=== PATIENT | male | born 2000 | race Caucasian/White ===

== ENCOUNTER 2025-02-25 01:31 | Emergency (ER) | payer OTHER, SELFPAY ==
--- NOTE | ~2025-02-25 | XR_ITS ---
Portable chest x-ray Comparison: 10/18/2010 Clinical History: Shortness of breath Findings: Lungs are clear, without focal consolidation or pleural effusion. Cardiomediastinal silho uette is stable. Bones and soft tissues are unremarkable. Impression: Clear lungs. Reviewed, dictated and finalized at location . Impression: Clear lungs.
--- NOTE | 2025-02-25 01:34 | ECG_ITS ---
Test Date: 2025-02-25 01:42:29 Measurements Intervals [place] Rate: 92 P: 23 LA: 197 QRS: -18 QRSD: 126 T: 55 QT: 359 QTc: 446 Interpretive Statements SINUS RHYTHM WITH SINUS ARRHYTHMIA INTRAVENTRICULAR CONDUCTION DELAY DELAYED PRECORDIAL R/S TRANSITION VOLTAGE CRITERIA FOR LVH MINIMAL Q WAVES- HIGH LATERAL LEADS BORDERLINE ECG No previous ECG available for comparison Electronically Signed On 02-25-2025 06:16:12 CDT by Rambo Go D.O.
--- OUTSIDE RECORDS SUMMARY | 2025-02-25 01:34 | XMS_ITS | CONTINUITY OF CARE DOCUMENT ---
Author Name jah tyson Address Unknown Organization [facility] Address [address] [place] [address] Phone [phone] Care Team Providers Care Statistics Manager Name Role Phone Moses RANDLE, Kevan Unavailable DANY JUAREZ MD Unavailable DANY JUAREZ MD Unavailable PROBLEMS Condition Status Date Provider Notes Chest pain active Kevan Lopes MD Palpitations active Kevan Lopes MD Anxiety disorder active Kevan Lopse MD Bipolar 1 disorder active Kevan Lopes MD Hypertension active Kevan Lopes MD Tobacco abuse active Kevan Lopes MD Snoring active Kevan Lopes MD Anxiety active Kevan Lopes MD (History of) Depression active Kevan Lopes MD Sleep apnea active Kevan Lopes MD Cardiology examination active Kevan Lopes MD ENCOUNTERS Date Type Provider Location Encounter Diag nosis - In-person encounter Office Visit Kevan Lopes MD [facility] Cardiology examination - In-person encounter Office Visit Kevan Lopes MD [facility] - In-person encounter Office Visit Kevan Lopes MD [facility] AnxietyDepressionSleep apnea - In-person encounter Office Visit Kevan Lopes MD [facility] - In-person encounter Office Visit Kevan Lopes MD [facility] Chest painPalpitationsAnxiety disorderBipolar 1 disorderHypertensionTobacco abuseSnoring VITAL SIGNS Date Observation Value Provider Body Mass Index (Ratio) 45.19 kg/m2 Viktor Lopes MD blood pressure, diastolic 97 mm[Hg] melissa Lee blood pressure, systolic 148 mm[Hg] Lashae quispe Lee oxygen saturation, oximetry 97 % [facility]ilia [facility] rate 115 [facility] 12 [facility] weight E&M 315 [lb_av] [facility] height [facility]&M 70 [in_i] [facility] blood [facility], cuff size regular melissa Lee Body Mass Index (Ratio) 44.76 kg/m2 Viktor Lopes MD blood pressure, cuff size regular sixto aRmirez blood pressure, diastolic 88 mm[Hg] sixto Ramirez blood pressure, systolic 142 mm[Hg] She maddie Ashley oxygen saturation, oximetry 98 % Morena Ashley respiratory rate E&M 18 /min Morena Ashley pulse rate 94 /min Morena Ashley weight E&M 312 [lb_av] Morena Ramirez height E&M 70 [in_i] Morena Ramirez Body Mass Index (Ratio) 41.61 kg/m2 Viktor Lopes MD blood pressure, diastolic 77 mm[Hg] Mi ting Prather blood pressure, systolic 128 mm[Hg] [facility] yordy Prather oxygen saturation, oximetry 97 % Cyndie Hernandezand pulse rate 81 /min Cyndie Jolanta sesay weight E&M 290 [lb_av] Cyndie sesay blood pressure, cuff size large Candice maguire Crescencio respiratory rate E&M 16 /min Michelle lundy Crescencio height E&M 70 [in_i] Cyndie Jolanta sesay Body Mass Index (Ratio) 42.07 kg/m2 Viktor Lopes MD blood pressure, cuff size large Iván anthony Durga blood pressure, diastolic 76 mm[Hg] Ta gabrielle Van blood pressure, systolic 128 mm[Hg] Cobos gato Durga oxygen saturation, oximetry 100 % [facility] respiratory rate E&M 14 /min [facility] pulse rate 93 /min Eli Durga weight E&M 293.2 [lb_av] Eli Durga height E&M 70 [in_i] Eli Durga weight E&M 301 [lb_av] Tim dougherty Body Mass Index (Ratio) 43.18 kg/m2 Viktor Lopes MD blood pressure, diastolic 96 mm[Hg] Shikha duarteLogmeghann blood pressure, systolic 155 mm[Hg] Kaley Blanco blood pressure, diastolic 96 mm[Hg] Paty Bryant blood pressure, systolic 155 mm[Hg] Jazzy Bryant oxygen saturation, oximetry 98 % Lashawn Bryant respiratory rate E&M 18 /min Scottie Bryant pulse rate 98 /min Lashawn melendez height E&M 70 [in_i] Lashawn melendez weight E&M 301 [lb_av] Lashawn melendez blood pressure, cuff size regular La Shani Bryant ALLERGIES No Known Drug Allergies HISTORY OF MEDICATION USE Medication Status Instructions Dates Provider Indications Com ments metoprolol tartrate 50 mg tablet active 1 tablet twice a day 8 Kevan Lopes MD metoprolol tartrate 25 mg tablet completed TAKE 1 TABLET BY MOUTH TWICE A DAY 1 - 8 Kevan Lopes MD metoprolol tartrate 25 mg tablet completed Take 1 tablet by mouth twice a day 5 - 1 Barbara Ellis hydroxyzine HCl 25 mg tablet active 1 tablet once a day Kevan Lopes MD lithium carbonate 450 mg tablet extended release active Take 2 tablet once a day Lashawn Bryant hydralazine 25 mg tablet completed Take 1 tablet by mouth three times a day - 5 Lashawn Bryant SOCIAL HISTORY Date Observation Value Provider drug use no Kevan Sesay alcohol use, average drinks per day social Kevan Lopes MD alcohol use yes Kevan Sesay passive cigarette sm dennis exposure no Kevan Lopes MD number of years as a smoker 4 a Kevan Lopes MD smoking, date started 2017 Kevan Lopes MD smoking history, tot al pack/day 1 Kevan Lopes MD cigarette use yes Kevan Lopes MD smoking status Current every day smoker R eugenia Lopes MD social history E&M Marital Statu s: Single C hildren: 0 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 Kevan Lopes MD social history reviewed E&M revi ewed - no changes required Kevan Lopes MD smoking status Current every day smoker S luis Ashley social history E&M Marital Statu s: Single C hildren: 0 O ccupation: Unemployed Smoking History: P atient currently smokes every day. Kevan Lopes MD social history reviewed E&M revi ewed - no changes required Kevan Lopes MD passive cigarette sm dennis exposure no Cyndie Prather number of years as a smoker 4 a Cyndie Prather smoking, date started 2017 Eliu South smoking history, tot al pack/day 1 Cyndie Prather cigarette use yes Cyndie Barros nd smoking status Current every day smoker M kaitlin Prather social history E&M Marital Statu s: Single C hildren: 0 O ccupation: Unemployed Smoking History: P atient currently smokes every day. Kevan Lopes MD social history reviewed E&M revi ewed - no changes required Kevan Lopes MD number of years as a smoker 4 a Eli Calixto smoking, date started 2017 Eli Van smoking history, tot al pack/day 1 Eli Van cigarette use yes Eli Van smoking status Current every day smoker T bonnie Calixto passive cigarette sm dennis exposure no Kevan Lopes MD social history E&M Marital Statu s: Single C hildren: 0 O ccupation: Unemployed Smoking History: P atient currently smokes every day. Kevan Lopes MD social history reviewed E&M revi ewed - no changes required Kevan Lopes MD drug use no Lashawn melendez alcohol use, average drinks per day social Lashawn Manny alcohol use yes Lashawn melendez number of years as a smoker 4 a Lashawn Bryant smoking history, tot al pack/day 10 Lashawn Bryant cigarette use yes Lashawn palacios smoking status Current every day smoker L Jocelin Bryant FAMILY HISTORY Family Member Condition First Degree Blood Relative No Known Fam liza History INSURANCE PROVIDERS Payer name Policy type / Coverage type [place] [employer] party ID [employer]\[facility] [employer] 11 [id number] ADVANCE DIRECTIVES Name Date DISCUSSED - NO DECISION MADE TREATMENT PLAN Date Name Performer [id number],S, Kevan beavers MD [id number],S, Kevan beavers MD [id number],S,Still has not picked up CPAP. Kevan Lopes MD [id number],S, Kevan beavers MD [id number],S, Kevan beavers MD [id number],S, Kevan beavers MD [id number],S, Kvean beavers MD [id number],N, Kevan beavers MD [id number],S, Kevan beavers MD [id number],B,Metoprolol wi ll now be prn Kevan Lopes MD [id number],C,Sleep study p ending Kevan Lopes MD [id number],B,Stress and EC HO normal Kevan Lopes MD [id number],S, Kevan beavers MD [id number],B, Kevan beavers MD [id number],W,2 week tele R eugenia Lopes MD [id number],N,Needs sleep s tudy Kevan Lopes MD [id number],N,Start metopro lol Kevan Lopes MD [id number],N,N eeds telesentry N eeds ECHO Kevan Lopes MD [id number],N,Needs stress test. Kevan Lopes MD Cardiology:Needs repeat IHS Viktor Lopes MD Cardiology:Will check 2 week tel e monitor, ECHO Kevan Lopes MD Cardiology Kevan Lopes MD Cardiology Kevan Lopes MD Cardiology:Still has not picked up CPAP. Kevan Lopes MD Cardiology Kevan Lopes MD Cardiology Kevan Lopes MD Cardiology Kevan Lopes MD Cardiology Kevan Lopes MD Cardiology Kevan Lopes MD Cardiology Kevan Lopes MD Cardiology:Metoprolol will now b e prn Kevan Lopes MD Cardiology:Sleep study pending R eugenia Lopes MD Cardiology:Stress and ECHO alessandra l Kevan Lopes MD Cardiology Kevan Lopes MD Cardiology Kevan Lopes MD Cardiology:2 week tele Kevan trimble MD Cardiology:Needs sleep study Baljeet Lopes MD Cardiology:Start metoprolol Viktor Lopes MD Cardiology:Needs tel esentry N eeds ECHO Kevan Lopes MD Cardiology:Needs stress test. Ra lakeisha Lopes MD Date Name Monitor - Telemetry (Mobile Cardiac) Complete Echo Monitor - Telemetry (Mobile Cardiac) Stress Routine Complete Echo Sleep Study Home HISTORY OF PROCEDURES Procedure Date Procedure Name Provider Procedure Notes S tatus EKG Kevan Lopes MD complete d EKG Kevan Lopes MD complete d
--- OUTSIDE RECORDS SUMMARY | 2025-02-25 01:34 | XMS_ITS | Data Portability ---
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 Plan of Treatment Reminders Order Date Submit Date Provider Last Modified By Organization Details Last Modified Time Details Appointments None recorded. Lab vitamin D, 25-hydroxy, total, serum 2023 [email or web address] [place] [address] (Lab), [address] [place], [address], 5 09:26:25 CMP, serum or plasma 2023 [email or web address] [place] [address] (Lab), [address] [place], [address], 5 09:23:29 lipid panel, serum 2023 024 [email or web address] [address] [place] [address] (Lab), [address] [place], [address], 5 09:23:38 unlisted lab - CBC study 2023 [email or web address] [address] [place] [address] (Lab), [address] [place], [address], 4 14:54:46 TSH, serum or plasma 2023 [email or web address] [place] [address] (Lab), [address] [facility], [place], [address], 5 09:23:47 vitamin B12 + folate, serum or blood 2023 024 [email or web address] 6 [facility] (Lab), [address] [place], [address], 5 09:26:[address] referral - Please call patient to schedule. 2023 [email or web address] Yaima Saucedo SUPPLY ANALYST-C, [address] [facility], [address], [place], [address], 4 17:04:05 gastroenter ologist referral - Please call patient to schedule. 2023 [email or web address] 6 Alison Mcleod MD, [address] [facility], [address], [place], [address], 5 08:15:58 Procedures None recorded. Surgeries None recorded. Imaging None recorded. Medication Orders metoprolol succinate ER 25 mg tablet,exte nded release 24 hr 2023 [facility]armacy #[id number], [address] , [place], [address], 4 14:54:29 Patient TargetsNo targets recorded. Patient InstructionsNo instructions recorded. Reason for Referral Rasper Machine Operator Referral for O bstructive sleep apnea syndrome Please call patient to schedule. Referring Physician: Mary Billings, Internal Medicine, Encounter Date: 09/16/2024 Histologist Technologist Referral for Colitis Please call patient to schedule. Referring Physician: Mary Billings, Internal Medicine, Encounter Date: 09/16/2024 Results Created Date Observation Date Name Description Value Unit Range Abnormal Flag Note LastModifiedBy Organization Detail LastModifiedTime 03/08/20 22 03/08/2022 TSH thyroid-stim ulating hormone 2.460 uIU/m L 0.465- 4.680 Not Available [facility] (Lab) [address] [place], [address], 03/08/2022 21:21:02 03/08/20 22 03/08/2022 T3 FREE free T3 4.7 pg/mL 2.77-5 .27 Not Available [facility] (Lab) [address] [place], [address], 03/08/2022 20:35:07 03/08/20 22 03/08/2022 T4 FREE free T4 1.34 NG/dL 0.78-2 .19 Not Available [facility] (Lab) [address] [place], [address], 03/08/2022 20:35:02 03/08/20 22 03/08/2022 LIPID PANEL cholesterol 203 mg/dL 140-19 9 high NIH MAYE NSUS RECOM MENDA TION FOR SERG STERO L: ADULT CHILD LOW RISK: <200 <170 BORDE RLINE : <200- 239 ----- HIGH RISK: >240 >200 Not Available [facility] (Lab) [address] [place], [address], 03/08/2022 20:12:10 03/08/20 22 03/08/2022 LIPID PANEL triglyceride s 301 mg/dL 0-150 high NIH MAYE NSUS REPOR T RECOM MENDA TION FOR TRIGL YCERI WENDY: ADULT CHILD LOW RISK: <150 ----- BODER LINE: 150-1 99 ----- HIGH RISK: >200 ----- Not Available [facility] (Lab) [address] [place], [address], 03/08/2022 20:12:10 03/08/20 22 03/08/2022 LIPID PANEL HDL cholesterol 38 mg/dL 40- low Not Available [facility] (Lab) [address] [place], [address], 03/08/2022 20:12:10 03/08/20 22 03/08/2022 LIPID PANEL LDL cholesterol, calculated 105 mg/dL 0-130 NIH MAYE NSUS REPOR T RECOM MENDA TIONS FOR LDL: ADULT CHILD LOW RISK <130 <110 (OPTI MAL LDL) <100 ----- BORDE RLINE : 130-1 59 ----- HIGH RISK: >160 >130 A TRIGL YCERI DE RESUL T >400 INVAL IDATE S THE CALCU LATIO N FOR LDL FRACT IONAT ION - THE LDL RESUL T WILL NOT BE REPOR LUCI. Not Available [facility] (Lab) [address] [place], [address], 03/08/2022 20:12:10 03/08/20 22 03/08/2022 CBC/C OMPLE TE BLD COUNT W/DIF F white blood cells 12.6 x10'3 /uL 4.2-10 .8 high Not Available [facility] (Lab) [address] [place], [address], 03/08/2022 12:58:11 03/08/20 22 03/08/2022 CBC/C OMPLE TE BLD COUNT W/DIF F red blood cells 5.67 x10'6 /uL 4.10-5 .80 Not Available [facility] (Lab) [address] [place], [address], 03/08/2022 12:58:11 03/08/20 22 03/08/2022 CBC/C OMPLE TE BLD COUNT W/DIF F hemoglobin 16.6 g/dL 13.2-1 7.0 Not Available [facility] (Lab) [address] [place], [address], 03/08/2022 12:58:11 03/08/20 22 03/08/2022 CBC/C OMPLE TE BLD COUNT W/DIF F hematocrit 50.6 % 39.3-5 0.0 high Not Available [facility] (Lab) [address] [place], [address], 03/08/2022 12:58:11 03/08/20 22 03/08/2022 CBC/C OMPLE TE BLD COUNT W/DIF F mean red cell volume 89.2 fL 80.0-9 7.0 Not Available [facility] (Lab) [address] [place], [address], 03/08/2022 12:58:11 03/08/20 22 03/08/2022 CBC/C OMPLE TE BLD COUNT W/DIF F mean red cell hemoglobin 29.3 pg 27.0-3 3.0 Not Available [facility] (Lab) [address] [place], [address], 03/08/2022 12:58:11 03/08/20 22 03/08/2022 CBC/C OMPLE TE BLD COUNT W/DIF F mean RBC HGB concentratio n 32.8 g/dL 31.0-3 6.0 Not Available [facility] (Lab) [address] [place], [address], 03/08/2022 12:58:11 03/08/20 22 03/08/2022 CBC/C OMPLE TE BLD COUNT W/DIF F red cell distribution width 12.6 % 11.8-1 5.5 Not Available [facility] (Lab) [address] [place], [address], 03/08/2022 12:58:11 03/08/20 22 03/08/2022 CBC/C OMPLE TE BLD COUNT W/DIF F platelets 245 x10'3 /uL 150-40 0 Not Available [facility] (Lab) [address] [place], [address], 03/08/2022 12:58:11 03/08/20 22 03/08/2022 CBC/C OMPLE TE BLD COUNT W/DIF F mean platelet volume 11.2 fL 9.0-12 .4 Not Available [facility] (Lab) [address] [place], [address], 03/08/2022 12:58:11 03/08/20 22 03/08/2022 CBC/C OMPLE TE BLD COUNT W/DIF F neutrophils 59.0 % 39.0-7 2.0 Not Available [facility] (Lab) [address] [place], [address], 03/08/2022 12:58:11 03/08/20 22 03/08/2022 CBC/C OMPLE TE BLD COUNT W/DIF F lymphocytes 32.6 % 16.0-4 7.0 Not Available [facility] (Lab) [address] [place], [address], 03/08/2022 12:58:11 03/08/20 22 03/08/2022 CBC/C OMPLE TE BLD COUNT W/DIF F monocytes 6.6 % 5.0-12 .0 Not Available [facility] (Lab) [address] [place], [address], 03/08/2022 12:58:11 03/08/20 22 03/08/2022 CBC/C OMPLE TE BLD COUNT W/DIF F eosinophils 1.0 % 1.0-7. 0 Not Available [facility] (Lab) [address] [place], [address], 03/08/2022 12:58:11 03/08/20 22 03/08/2022 CBC/C OMPLE TE BLD COUNT W/DIF F basophils 0.6 % 0.0-2. 0 Not Available [facility] (Lab) [address] [place], [address], 03/08/2022 12:58:11 03/08/20 22 03/08/2022 CBC/C OMPLE TE BLD COUNT W/DIF F immature granulocytes 0.2 % 0.00-0 .50 Not Available [facility] (Lab) [address] [place], [address], 03/08/2022 12:58:11 03/08/20 22 03/08/2022 CBC/C OMPLE TE BLD COUNT W/DIF F neutrophils, absolute count 7.41 x10'3 /uL 1.5-8. 0 Not Available [facility] (Lab) [address] [place], [address], 03/08/2022 12:58:11 03/08/20 22 03/08/2022 CBC/C OMPLE TE BLD COUNT W/DIF F lymphocytes, absolute count 4.10 x10'3 /uL 1.07-3 .43 high Not Available [facility] (Lab) [address] [place], [address], 03/08/2022 12:58:11 03/08/20 22 03/08/2022 CBC/C OMPLE TE BLD COUNT W/DIF F monocytes, absolute count 0.83 x10'3 /uL 0.29-0 .99 Not Available [facility] (Lab) [address] [place], [address], 03/08/2022 12:58:11 03/08/20 22 03/08/2022 CBC/C OMPLE TE BLD COUNT W/DIF F eosinophils, absolute count 0.13 x10'3 /uL 0.02-0 .53 Not Available [facility] (Lab) [address] [place], [address], 03/08/2022 12:58:11 03/08/20 22 03/08/2022 CBC/C OMPLE TE BLD COUNT W/DIF F basophils, absolute count 0.08 x10'3 /uL 0.01-0 .08 Not Available [facility] (Lab) [address] [place], [address], 03/08/2022 12:58:11 03/08/20 22 03/08/2022 CBC/C OMPLE TE BLD COUNT W/DIF F immature granulocytes ,absolute 0.02 x10'3 /uL 0.00-0 .05 Not Available [facility] (Lab) [address] [place], [address], 03/08/2022 12:58:11 03/08/20 22 03/08/2022 CBC/C OMPLE TE BLD COUNT W/DIF F nucleated red blood cells 0.0 % -0 Not Available [facility] (Lab) [address] [place], [address], 03/08/2022 12:58:11 03/08/20 22 03/08/2022 CBC/C OMPLE TE BLD COUNT W/DIF F NRBC# 0.00 x10'3 /uL Not Available [facility] (Lab) [address] [place], [address], 03/08/2022 12:58:11 03/31/20 22 02/24/2022 XR, chest No observ ation record ed. [id number] [facility] [address] , [place], [address], 01/25/2023 20:54:52 06/27/20 22 06/27/2022 imagi ng/di agnos tic resul t No observ ation record ed. [id number] [facility] [address], [place], [address], 01/25/2023 20:54:52 07/04/20 22 07/01/2022 imagi ng/di agnos tic resul t No observ ation record ed. [id number] [facility] [address], [place], [address], 01/25/2023 20:54:52 07/08/20 22 06/28/2022 polys omnog jim (PROC ) No observ ation record ed. [id number] [facility] [address], [place], [address], 01/25/2023 20:54:52 07/22/20 22 07/22/2022 imagi ng/di agnos tic resul t No observ ation record ed. [id number] [facility] [address], [place], [address], 01/25/2023 20:54:52 07/22/20 22 07/22/2022 imagi ng/di agnos tic resul t No observ ation record ed. [id number] [facility] [address] [facility] [address], [place], [address], 01/25/2023 20:54:52 07/22/20 22 07/22/2022 imagi ng/di agnos tic resul t No observ ation record ed. [id number] [facility] [address] [facility] [address], [place], [address], 01/25/2023 20:54:52 07/22/20 22 07/22/2022 imagi ng/di agnos tic resul t No observ ation record ed. [id number] [facility] [address], [place], [address], 01/25/2023 20:54:52 08/09/20 22 08/05/2022 polys omnog gagan, titra tion study No observ ation record ed. [id number] [facility] [address], [place], [address], 01/25/2023 20:54:52 08/09/20 22 08/05/2022 polys omnog jim (PROC ) No observ ation record ed. [id number] [facility] Add On Lab Orders [address] [place], [address], 01/25/2023 20:54:52 08/09/20 22 08/05/2022 polys omnog gagan, titra tion study No observ ation record ed. [id number] Not Available 01/25/2023 20:54:52 Result Notes None recorded. Problems Name Problem SNOMED Code Status Onset Date Resolution Date Notes Provider Name and Address Organization Details Recorded Time Sleep disorder 57864770 Active 2021 Not Available [facility] 3 20:54:11 Chronic insomnia 100019394 Active 2021 Not Available [facility] 3 20:54:11 Hypersomnia 19532701 Active 2021 Not Available [facility] 3 20:54:11 Obstructive sleep apnea syndrome 37237032 Active 2021 Not Available [facility] 3 20:54:11 Palpitations 54757645 Active 2021 Not Available [facility] 3 20:54:11 Fatigue 74859139 Active 2021 Not Available [facility] 3 20:54:11 Essential hypertension 89137779 Active 2023 Mary huitron MD [address], [address], [place], [address] , [employer] 4 14:31:51 Vitamin D deficiency 64914095 Active 2023 Mary huitron MD [address], [address], [place], [address] , [employer] 4 14:34:36 Serum vitamin B12 below reference range 562200870 Active 2023 Mary huitron MD [address], [address], [place], [address] , [employer] 4 14:34:49 Bipolar disorder 18497152 Active 2023 Mary huitron MD [address], [address], [place], [address] , [employer] 4 14:35:08 Hyperlipidemi a 60706072 Active 2023 Mary huitron MD [address], [address], [place], [address] , [facility] 4 14:51:08 [facility] 88590831 Active 2023 Mary huitron MD [address], [address], [place], [address] , [facility] 4 14:51:25 Notes:[facility] night 1 home slee p study 06/28/22 AHI = 21 [facility] night 2 titration sleep study 08/05/22 [employer] large Vitera full face mask @ 8 cmH2O Medical History: Bipolar disorder Erythrocytosis Obesity with mod OSAHS, AHI = 21, 06/28/22, on CPAP c/o IVRC Hypertension EF 65% Mild biventricular enlargement Mixed hyperlipidemia Problem Notes None recorded. Procedures Surgical History None recorded. Imaging Results Imaging Date Name Status LastModified by Organization Details LastModified Time 02/24/2022 XR, chest completed [id number] [facility] [address], [place], [address], 01/25/2023 20:54:52 08/05/2022 polysomnogram, titration study completed [id number] [facility] [address], [place], [address], 01/25/2023 20:54:52 08/05/2022 polysomnography (PROC) completed [id number] [facility] Add On Lab Orders [address], [place], [address], 01/25/2023 20:54:52 08/05/2022 polysomnogram, titration study completed [id number] Information not available 01/25/2023 20:54:52 06/27/2022 imaging/diagnostic result completed [id number] [facility] [address], [place], [address], 01/25/2023 20:54:52 07/01/2022 imaging/diagnostic result completed [id number] [facility] [address], [place], [address], 01/25/2023 20:54:52 07/22/2022 imaging/diagnostic result completed [id number] [facility] [address], [place], [address], 01/25/2023 20:54:52 07/22/2022 imaging/diagnostic result completed [id number] [facility] [address], [place], [address], 01/25/2023 20:54:52 07/22/2022 imaging/diagnostic result completed [id number] [facility] [address] [facility] [address], [place], [address], 01/25/2023 20:54:52 07/22/2022 imaging/diagnostic result completed [id number] [facility] [address], [place], [address], 01/25/2023 20:54:52 06/28/2022 polysomnography (PROC) completed [id number] [facility] [address] , [place], [address], 01/25/2023 20:54:52 Procedure Notes None recorded. Medical Equipment None Reported. Allergies No known drug allergies Medications Name Sig Start Date Stop Date Status Note LastModified by Organization Details LastModified Time ziprasido ne 80 mg capsule TAKE 1 CAPSULE BY MOUTH TWICE A DAY WITH MEALS 09/16 completed Not Available Not Available Not Available lamotrigi ne 150 mg tablet TAKE 1 TABLET BY MOUTH TWICE A DAY active Not Available Not Available No t Available doxycycli ne hyclate 100 mg capsule TAKE 1 CAPSULE BY MOUTH TWICE A DAY 03/08 completed Not Available Not Available Not Available quetiapin e 300 mg tablet TAKE 1 TABLET BY MOUTH EVERYDAY AT BEDTIME 03/08 completed pt stopped Not Available Not Available Not Available clindamyc in HCl 300 mg capsule TK ONE C PO BID 07/02 completed Not Available Not Available Not Available naltrexon e 50 mg tablet TAKE 1 TABLET BY MOUTH EVERY DAY IN THE MORNING 09/16 completed Not Available Not Available Not Available quetiapin e 200 mg tablet TAKE 1 TABLET BY MOUTH AT BEDTIME 03/08 completed pt stopped Not Available Not Available Not Available clonazepa m 1 mg tablet TAKE 1 TABLET BY MOUTH EVERY DAY NEEDED FOR ANXIETY active Not Available Not Available No t Available olanzapin e 10 mg tablet TAKE 1 TABLET BY MOUTH EVERY DAY 08/23 completed Not Available Not Available Not Available lithium carbonate ER 300 mg tablet,ex tended release TAKE 2 TABLETS BY MOUTH TWICE A DAY active Not Available Not Available No t Available quetiapin e 100 mg tablet TAKE 2 TABLETS BY MOUTH AT BEDTIME 03/08 completed pt stopped Not Available Not Available Not Available lithium carbonate ER 450 mg tablet,ex tended release TAKE 2 TABLETS BY MOUTH AT BEDTIME 08/23 completed Not Available Not Available Not Available lamotrigi ne 25 mg tablet TAKE 2 TABLETS BY MOUTH EVERY MORNING 08/23 completed Not Available Not Available Not Available paroxetin e 20 mg tablet TAKE 1 TABLET BY MOUTH EVERY DAY 08/23 completed Not Available Not Available Not Available hydroxyzi ne HCl 25 mg tablet TAKE 1 TABLET (25 MG) BY MOUTH BED TIME 08/23 completed Not Available Not Available Not Available metoprolo l succinate ER 25 mg tablet,ex tended release 24 hr TAKE 1 TABLET BY MOUTH EVERY DAY active Not Available Not Available No t Available lamotrigi ne 100 mg tablet TAKE 1 TABLET BY MOUTH EVERY DAY 08/23 completed Not Available Not Available Not Available aripipraz ole 20 mg tablet TAKE 1 TABLET BY MOUTH EVERY DAY active Not Available Not Available No t Available metoprolo l tartrate 25 mg tablet TAKE 1 TABLET BY MOUTH TWICE A DAY 09/16 completed Not Available Not Available Not Available Vitals Date Recorded Body mass index (BMI) Body height Heart rate Body temperature Body weight Systolic blood pressure Diastolic blood pressure Provider Name and Address Organization Details Last Updated DateTime 2 40.3 kg/m2 182.88 cm 120 /min 97.7 [degF] 531261. 93 g 110 mm[Hg] 80 mm[Hg] Not Available [facility] 3 20:54:04 Date Recorded Body mass index (BMI) Body height Oxygen saturation Oxygen saturation in Arterial blood by Pulse oximetry Heart rate Body temperature Body weight Systolic blood pressure Diastolic blood pressure Provider Name and Address Organization Details Last Updated DateTime 2 39.3 kg/m2 182.88 cm 97 % 97 % 65 /min 97.3 [degF] 040642. 79 g 110 mm[Hg] 52 mm[Hg] Not Available [facility] 3 20:54:04 Date Recorded Body height Body mass index (BMI) Body weight Body temperature Heart rate Systolic blood pressure Diastolic blood pressure Provider Name and Address Organization Details Last Updated DateTime 4 182.88 cm 38.9 kg/m2 637608. 01 g 97.5 [degF] 84 /min 132 mm[Hg] 76 mm[Hg] SUZIE Andrade [employer] 4 14:26:01 Social History Question Answer Notes LastModified by Organization Details LastModified Time Tobacco Smoking Status Former Smoker quit 2021 [facility] [employer] 09/16/2024 14:23:47 Do You Have An Advance Directive? No MIGRATION.030 [id number] Information not available 01/25/2023 What Is Your Level Of Alcohol Consumption? None MIGRATION.030 [id number] Information not available 01/25/2023 What Is Your Level Of Caffeine Consumption? Occasional MIGRATION.030 [id number] Information not available 01/25/2023 In The 14 Days Before Symptom Onset, Have You Had Close Contact With A Laboratory-confi rmed COVID-19 While That Case Was Ill? No MIGRATION.030 [id number] Information not available 01/25/2023 In The 14 Days Before Symptom Onset, Have You Had Close Contact With A Person Who Is Under Investigation For COVID-19 While That Person Was Ill? No MIGRATION.030 [id number] Information not available 01/25/2023 Are You Currently Employed? Yes Information not available 09/16/2024 What Type Of Diet Are You Following? REGULAR MIGRATION.0301 [id number] Information not available 01/25/2023 Do You Or Have You Ever Used E-cigarettes Or Vape? Current User Of Electronic Cigarettes Vapes Information not available 09/16/2024 What Is The Highest Grade Or Level Of School You Have Completed Or The Highest Degree You Have Received? [id number] MIGRATION.0301 [id number] Information not available 01/25/2023 What Is Your Occupation? [employer] Information not available 09/16/2024 Have There Been Any Changes To Your Family Or Social Situation? No MIGRATION.0301 [id number] Information not available 01/25/2023 What Is The Fluoride Status Of Your Home? Unknown MIGRATION.0301 [id number] Information not available 01/25/2023 When Did You Quit Smoking? 1-5yearssincelastci josep Information not available 09/16/2024 Are There Any Guns Present In Your Home? No MIGRATION.0301 [id number] Information not available 01/25/2023 Do You Use Insect Repellent Routinely? No MIGRATION.0301 [id number] Information not available 01/25/2023 Where Do You Live? SingleLevelHouse MIGRATION.0301 [id number] Information not available 01/25/2023 Do You Have A Medical Power Of Icing Coater? No MIGRATION.0301 [id number] Information not available 01/25/2023 What Was The Date Of Your Most Recent Tobacco Screening? 09/16/2024 Information not available 09/16/2024 What Is Your Current Pack Years? 30ormorepackyears MIGRATION.0301 [id number] Information not available 01/25/2023 Do You Have Any Pets? Yes MIGRATION.0301 [id number] Information not available 01/25/2023 What Is Your Relationship Status? Single MIGRATION.0301 [id number] Information not available 01/25/2023 Do You Use Your Seat Belt Or Car Seat Routinely? Yes MIGRATION.0301 [id number] Information not available 01/25/2023 Do You Have Smoke And Carbon Monoxide Detectors In Your Home? Yes MIGRATION.0301 [id number] Information not available 01/25/2023 At What Age Did You Start Smoking Tobacco? 18 MIGRATION.0301 [id number] Information not available 01/25/2023 Are You Passively Exposed To Smoke? Yes MIGRATION.0301 [id number] Information not available 01/25/2023 Do You Or Have You Ever Used Smokeless Tobacco? Never Used Smokeless Tobacco Information not available 09/16/2024 Are There Any Smokers In Your House? Yes MIGRATION.0301 [id number] Information not available 01/25/2023 How Much Tobacco Do You Smoke? No Was 1/2 Ppd Information not available 09/16/2024 What Types Of Sporting Activities Do You Participate In? None MIGRATION.0301 [id number] Information not available 01/25/2023 Do You Feel Stressed (tense, Restless, Nervous, Or Anxious, Or Unable To Sleep At Night)? [id number] MIGRATION.0301 [id number] Information not available 01/25/2023 Do You Use Any Illicit Or Recreational Drugs? No MIGRATION.0301 725139 Information not available 01/25/2023 Do You Use Sunscreen Routinely? No MIGRATION.0301 [id number] Information not available 01/25/2023 Have You Recently Traveled Abroad? No MIGRATION.0301 [id number] Information not available 01/25/2023 Have You Used IV Drugs? No MIGRATION.0301 [id number] Information not available 01/25/2023 Do You Have Any Dietary Restrictions? No MIGRATION.0301 [id number] Information not available 01/25/2023 Do You Or Have You Ever Used Any Other Forms Of Tobacco Or Nicotine? Yes Information not available 09/16/2024 Sex: Male Functional Status Question Answer Note LastModified by Organizat ion Details LastModified Time What is your exercise level? Moderate [id number] Information not available 01/25/2023 Mental Status None recorded. Family History Relationship Description Onset Age of this Age Resolved Age Notes LastModified by Organization Details LastModified Time Mother Hypertensive disorder [id number].843 [id number] Not available 01/25/2023 20:53:54 Paternal Grandfather Heart disease MIGRATION.328 [id number] Not available 01/25/2023 20:53:54 Paternal Grandmother Heart disease MIGRATION.420 [id number] Not available 01/25/2023 20:53:54 Medical History Condition Response NERVE DISEASE N BLINDNESS N RHEUMATIC FEVER N KIDNEY STONES N BLADDER PROBLEMS N MRSA N OTHER # 1 N POLIO N LUNG DISEASE/DISORDER N HISTORY OF DRUG ABUSE N RADIATION / CHEMOTHERAPY N COPD N Other # 2 N BLOOD DISEASES N EAR OR HEARING PROBLEMS N MUMPS N SHINGLES N BOWEL PROBLEMS N DEPRESSION (INCLUDING POST ) Y STROKE/TIA N ULCERS N BENIGN PROSTATIC HYPERPLASIA N MEASLES N HYPOTENSION N MYOCARDIAL INFARCTION N OBESITY N GERD/NAUSEA N ANEURYSM N URINARY/BLADDER/KIDNEY PROBLEMS N CORONARY ARTERY DISEASE (CAD) N ADDICTION CONCERNS N Impotence N ENDOMETRIOSIS N USE OF BLOOD THINNERS N SKIN PROBLEMS N GASTROINTESTINAL DISORDER N PERIPHERAL VASCULAR DISEASE N MUSCLE,JOINT OR BONE PROBLEMS N GASTROINTESTINAL BLEEDING N BLOOD CLOTS N ASTHMA N CATARACTS N ERECTILE DYSFUNCTION N VARICOSITIES N GI PROBLEMS N Low Testosterone N INFERTILITY N AIDS/HIV N CHEMOTHERAPY / RADIATION N LIVER DISEASE N MALE HYPOGONADISM N HYPERTENSION N Deficiency N TOURETTE'S N ANXIETY DISORDER N BLOOD TRANSFUSION N ANEMIA/BLOOD DISORDER N CHRONIC EAR INFECTIONS N BRONCHITIS N TUBERCULOSIS N GLAUCOMA N FOOT PROBLEM N DIVERTICULITIS N SLEEP APNEA N CHICKENPOX N INFECTIOUS DISEASE N PROSTATE N HEART ARRHYTHMIA N INSOMNIA N HIGH CHOLESTEROL / HYPERLIPIDEMIA N EYE PROBLEMS N HYPERTHYROIDISM N EDEMA N CHRONIC PAIN SYNDROME N HYPOTHYROIDISM N CONSTIPATION N CAROTID BLOCKAGE N BACK / NECK PROBLEMS N ATHEROSCLEROSIS N BREAST PROBLEMS N DIALYSIS N ECZEMA N OSTEOPOROSIS N ARTHRITIS N APPENDICITIS N DIABETES, TYPE N BAD TEETH N ENT N HEARTBURN / REFLUX N AUTISM SPECTRUM DISORDER (ASD) N HEPATITIS / LIVER DISEASE N GOUT N SLEEP DISORDER N ALZHEIMER'S DISEASE N Brain Problems N DEMENTIA N HERPES N SEIZURES/EPILEPSY N HEADACHES/MIGRAINES N VASCULAR DISEASE N PACEMAKER N Blood Disorder N DIZZINESS N HEART DISEASE/HEART PROBLEMS Y KIDNEY DISEASE N MULTIPLE SCLEROSIS N CANCER: SPECIFY N CARDIAC ARRHYTHMIA N ATRIAL FIBRILLATION N Gall Stones N PULMONARY EMBOLISM N AUTOIMMUNE DISEASE N Past Encounters Encounter ID Performer Location Encounter Start Date Encounter Closed Date Diagnosis/Indication Diagnosis SNOMED-CT Code Diagnosis ICD10 Code Diagnosis Note [id number] [facility] Med Janet carrizales [address] [place] [address] 03/08/2022 00:00:00 03/27/2022 21:08:49 [id number] [facility] [place] [address] [place] [address] 08/23/2022 00:00:00 08/23/2022 10:29:01 [id number] Mary huitron MD [facility] [place] Med Janet carrizales [address] [place] [address] 09/16/2024 14:14:40 09/16/2024 14:55:10 Screening - NAD 006238092 Z13.9 Get yearly flu shotGet tdap if not doneGet COVID 19 vaccine and its boosters RTC in 3 months, get labs, ER if worse, he did verbalize his understand ing of the above Obstructiv e sleep apnea syndrome 34173443 G47.33 On CPAPGet a referral to Dr Gallardo Essential hypertension [id number] I10 On metoprolol 25mg bid, self stopped, wants to restart at daily dose, will renew 09/16/2024 Get labs Vitamin D deficiency 347 86724 E55.9 Serum hari min B12 below reference range 057340573 R79.89 Bipolar disorder 3357876 4 F31.9 On aripiprazo le 20mg dailyOn clonazepam 1mg dailyOn lithium ER 300mg [address] Edison yusuf suicidal or homicidal Ex-cigarette smoker [id number] 63998 Z87.891 Does wellGet US AAA at age 65 years Hyperlipidemia 46373210 E78.5 Not on any medsGet labs Colitis 29457360 K52.9 States that occasional ly he does get 'oily stools', no blood in stools, none nowWas in the ER and did have a CT abd, will get the reportAlso get a referral to GI for EGD and C-scope Health Concerns Section Related Observation LastModified by Organization Detai ls LastModified Time None Recorded Concern Status LastModified by Organization Details LastModified Time None Recorded Advance Directives Directive N: Payers Encounter Date Sequence Insurance Name Policy Number Policy Fabian Covered Member ID Fabian Member ID Guarantor Name 09/16/2024 1 [facility]) [id number] [address] Brodhead [id number] Blayne Guzman Notes Date Note Type Note Provider Name and Address Organization Details Recorded Time 09/16/2024 text/html OV 09/16/2024:Here to establish care Present Hx:BiPolarHTN Here to discuss above, he is doing very well, in the past he has noted some abdominal discomfort, none today, states that he ate a can of soup and it then has 'oily stools', no abdominal pain now, no blood in rectum or stool, normal appetite no weight gain or loss, he does need to do labs Mary Billings MD [address] [address], [place], [address], [place] - [facility] 09/16/2024 17:16:00
--- OUTSIDE RECORDS SUMMARY | 2025-02-25 01:34 | XMS_ITS | Clinical Summary ---
Author Organization [facility] [employer] Address [address] [place] [address] Care Team Providers Care Shuffle Board Operator Name Role Phone Unavailable Primary Care Provider Unavailabl e Source Comments [facility],non-owned Affiliates and Associated Physician Practices is amultiple site organization consisting of ambulatory clinics and hospital sitesin [place], [place], [place] and [place]. This disclosure is being madepursuant to the Care Everywhere program and may not contain all information available regarding this patient. Last updated 18.[facility] [employer] Allergies No known active allergies Medications Be aware that medications may not be up to date on this document. Always verify current medications with the patient. No known medications Active Problems Problem Noted Date Diagnosed Date Right knee injury 08/06/2013 Social History Tobacco Use Types Packs/Day Years Used Date Smoking Tobacco: Never Alcohol Use Standard Drinks/Week Comments No 0 (1 standard drink = 0.6 oz pur e alcohol) Sex and Gender Information Value Date Recorded Sex Assigned at Not on file Gender Identity Not on file Sexual Orientation Not on file Plan of Treatment Health Maintenance Due Date Last Done Comments HIV SCREENING 2015 HPV VACCINE (1 - Male 3-dose series) 2015 HEPATITIS C SCREENING 03/21/2018 DTAP/TDAP/TD VACCINES (1 - Tdap) 2019 HEPATITIS B VACCINE (1 of 3 - 19+ 3-dose series) 2019 COVID-19 VACCINE (1 - 2023-2 5 season) 2024 INFLUENZA VACCINE (#1) 2024 DEPRESSION SCREENING 11/27/2024 ZOSTER VACCINE (1 of 2) 2050 HIB VACCINE Aged Out No longer eligi ble based on patient's age to complete this topic MENINGOCOCCAL (Group B) VACC INE SHARED DECISION-MAKING Aged Out No longer eligibl e based on patient's age to complete this topic MENINGOCOCCAL GROUPS A/C/Y/W VACCINE Aged Out No longer eligible b ased on patient's age to complete this topic PNEUMOCOCCAL VACCINE Aged Out No long er eligible based on patient's age to complete this topic
[2025-02-25 01:35] VITALS: BP 180/108; PULSE 104; RESP 25; TEMP 36.7; O2SAT 99
--- NOTE | 2025-02-25 01:48 | ED.DIZZY ---
HPI - Dizziness General Chief Complaint: Dizziness Stated Complaint: sob, dizzy, lightheaded Time Seen by Provider: 02/25/25 01:38 History of Present Illness HPI Narrative: 24-year-old male with a past medical history including hypertension that he takes metoprolol for, previous anxiety disorder and schizophrenia. He presents the emergency department as he is having occasional shortness of breath and dizziness sensation feeling he is going to pass out. He states he sleeps in his truck and wakes up several times throughout the night feeling like he is gasping for breath. Does not have these issues when he is lying and sleeping in his normal bed at his mom's house but he normally sleeps in his car. Patient states he follows with a distribution specialist for elevated blood pressures at [facility]. Has an appointment in 2 weeks and scheduled echocardiogram at that time. No medication changes recently. Does not use a CPAP for have any other medication changes recently. Was otherwise in his normal state of health. Denies any chest pain chest pressure, no symptoms at rest, no orthopnea. No leg swelling. Occasionally gets palpitations sensations. No history of irregular heartbeat. Related Data Allergies Allergy/AdvReac Type Severity Reaction Status Date / Time No Known Allergies Allergy Unverified 09/16/11 14:57 Review of Systems Review of Systems: As reviewed above in HPI Exam Narrative: GENERAL: Morbidly obese, not any acute distress, not dyspneic, answering all questions appropriately. HEAD: [Normocephalic, atraumatic.] EYES: [PERRLA and EOMI.] ENT: Nares clear, no rhinorrhea or epistaxis. Mucous membranes moist. NECK: Thick neck, supple CHEST: [Clear to auscultation. No respiratory distress.] No wheezing, rhonchi or rales. HEART: [Regular rate and rhythm]. No murmur heard. [Normal peripheral pulses.] ABDOMEN: [Soft, nondistended], [nontender], [No rigidity or guarding] EXTREMITIES: Normal range of motion. [No edema.] SKIN: Warm, dry, no rash. NEURO: [No focal deficits]. Alert and oriented [x3.] PSYCH: [Normal mood and affect.] Course Vital Signs Vital signs: Vital Signs Temperature 36.7 C 02/25/25 01:35 Pulse Rate 104 H 02/25/25 01:35 Respiratory Rate 25 H 02/25/25 01:35 Blood Pressure 180/108 H 02/25/25 01:35 Pulse Oximetry 99 02/25/25 01:35 Temperature 36.7 C 02/25/25 01:35 Pulse Rate 104 H 02/25/25 01:35 Respiratory Rate 25 H 02/25/25 01:35 Blood Pressure 180/108 H 02/25/25 01:35 Pulse Oximetry 99 02/25/25 01:35 MDM - Dizziness MDM Narrative Medical decision making narrative: 24-year-old male with history of hypertension and morbid obesity. Untreated sleep apnea. Presents to the emergency department with feelings of occasional shortness of breath and feeling lightheaded with dizziness. Occasional palpitations sensations. States he feels this way several times throughout the night when he wakes up in his car where he sleeps. He normally sleeps in his vehicle. Symptoms going on for several months. Follows with a distribution specialist outpatient at [facility]. Appointment in 2 weeks with regular echocardiogram scheduled. On metoprolol 25 mg extended release. No other cardiac medications. No history of heart failure, irregular heartbeat. He is morbidly obese and not any distress. He has strong symmetric pulses, warm extremities, hypertensive blood pressure but not causing any significant symptoms at this time. Normal temperature, 100% on room air. Suspicion presently is for obstructive sleep apnea causing his hypertension symptoms. Low suspicion for pulmonary process such as pulmonary hypertension or pneumonia. No pneumothorax suspected. No current suspicion for ACS based on age and risk factor profile. Will obtain basic workup including CBC and BMP. Chest x-ray and EKG ordered. He was given a fluid bolus. EKG obtained shows sinus rhythm without any ischemic changes. Regular rate, regular rhythm and axis. No previous EKG for comparison. Workup shows slight leukocytosis of 14.4 but no evidence of a consolidation or signs of pneumonia on chest x-ray. Normal platelet count. Normal hemoglobin. Electrolytes unremarkable. Normal renal function. Normal glucose. Patient's chest x-ray was reviewed and does show some cardiomegaly but no pleural effusions, no pneumothorax. No signs of consolidation or pneumonia. Compared to prior x-ray in our chart from 3 years ago no significant interval change and appears chronic. Patient is stable for discharge with regular PCP follow-up and Cardiology follow-up outpatient. Medical Records Attestation: I reviewed the patient's medical records. Lab Data Attestation: I reviewed the patient's lab results. 02/25/25 01:51 02/25/25 01:51 Labs: Lab Results 02/25/25 Range/Units 01:51 WBC 14.4 H (4.5-10.0) K/mm3 RBC 5.48 (4.6-6.20) M/mm3 Hgb 16.4 (14.0-18.0) g/dL Hct 47.3 (42.0-52.0) % MCV 86.3 (80-100) fl MCH 29.9 (26-34) pg MCHC 34.7 (32-36) g/dl RDW 12.3 (11.5-14.5) % Plt Count 248 (150-375) k/mm3 MPV 10.4 (7.4-10.4) fl Immature Gran % (Auto) 0.4 (0-0.5) % Neut % (Auto) 65.9 (45.5-73.1) % Lymph % (Auto) 25.6 (18.3-44.2) % [place] % (Auto) 6.5 (2.6-8.5) % Eos % (Auto) 1.0 (0-4.4) % Baso % (Auto) 0.6 (0.2-1.2) % Lymph # (Auto) 3.68 H (0.9-3.2) K/mm3 [place] # (Auto) 0.9 H (0.1-0.6) K/mm3 Eos # (Auto) 0.1 (0-0.3) K/mm3 Baso # (Auto) 0.1 (0.0-0.1) K/mm3 Abs Immat Gran (auto) 0.06 H (0.00-0.031) K/mm3 Absolute Neuts (auto) 9.5 H (1.3-6.7) K/mm3 Absolute Nucleated RBC 0.000 (0.0-0.012) K/mm3 Nucleated RBC % 0.0 (0.0-0.2) % Sodium 138 (137-145) mmol/L Potassium 3.9 (3.4-5.0) mmol/L Chloride 103 (98-107) mmol/L Carbon Dioxide 22 (22-30) mmol/L Anion Gap 13 H (4-12) mmol/L BUN 11 (9-20) mg/dL Creatinine 0.62 L (0.7-1.3) mg/dL Estim Creat Clear Calc 230 ml/min Estimated GFR > 60 (59 - ) Glucose 104 (65-110) mg/dL Calcium 9.4 (8.4-10.2) mg/dL Imaging Data Attestation: I personally reviewed and interpreted this imaging study as follows: My impression: Cardiomegaly, no significant interval change from prior chest x-ray 3 years ago. No consolidations or signs of pleural effusions. No pneumothorax. ECG Data EKG #1: Attestation: I personally reviewed and interpreted this ECG as follows: ECG completion date: 02/25/25 ECG completion time: 01:51 Prior ECG tracings: not available for review Interpretation: No ST segment elevations, depressions or inversions. Sinus rhythm, QTC interval 4 9, QRS interval 126, CT interval 197. No previous EKG for comparison. No acute occlusive event evident. Normal sinus rhythm. Discharge Plan Discharge Clinical Impression: Dyspnea, paroxysmal nocturnal, Cardiomegaly, Obstructive sleep apnea Patient Disposition: Home, Self-Care Condition: Stable Instructions: Antibiotic Form Additional Instructions: Follow-up with regular doctor and distribution specialist on outpatient visit. Your chest x-ray shows an enlarged heart which was seen also in previous x-rays years ago. This is likely secondary to chronic hypertension and obstructive sleep apnea. You will need your echocardiogram done. You would benefit from a CPAP machine at night and wanted to contact your primary care provider to prescribe this for you. Follow-up with your doctors. Return with any emergent concerns. Patient Language: Jamaican Follow-up/Referrals: PHYSICIAN NOT ON STAFF,NONSTAFF [Primary Care Provider] - Time of Disposition: 03:34
[2025-02-25] MEDS: LACTATED RINGERS 1,000 ML 999 ML IV CONT (01:54)
[2025-02-25 01:57] LABS: Basophils Absolute Auto 0.1 K/mm3 (0.0-0.1); Basophils Percent Auto 0.6 % (0.2-1.2); Eosinophils Absolute Auto 0.1 K/mm3 (0-0.3); Hematocrit 47.3 % (42.0-52.0); Hemoglobin 16.4 g/dL (14.0-18.0); Immature Granulocyte Absolute 0.06 K/mm3 (0.00-0.031); Immature Granulocyte Percent A 0.4 % (0-0.5); Lymphocytes Absolute Auto 3.68 K/mm3 (0.9-3.2); Lymphocytes Percent Auto 25.6 % (18.3-44.2); Mean Corpuscular HGB Conc 34.7 g/dl (32-36); Mean Corpuscular Hemoglobin 29.9 pg (26-34); Mean Corpuscular Volume 86.3 fl (80-100); Mean Platelet Volume 10.4 fl (7.4-10.4); Monocytes Absolute Auto 0.9 K/mm3 (0.1-0.6); Monocytes Percent Auto 6.5 % (2.6-8.5); Neutrophils Absolute Auto 9.5 K/mm3 (1.3-6.7); Neutrophils Percent Auto 65.9 % (45.5-73.1); Platelet Count Result 248 k/mm3 (150-375); Red Blood Count 5.48 M/mm3 (4.6-6.20); Red Cell Distribution Width 12.3 % (11.5-14.5); White Blood Count 14.4 K/mm3 (4.5-10.0)
[2025-02-25 02:08] LABS: Anion Gap 13 mmol/L (4-12); Blood Urea Nitrogen 11 mg/dL (9-20); Calcium 9.4 mg/dL (8.4-10.2); Carbon Dioxide 22 mmol/L (22-30); Chloride 103 mmol/L (98-107); Estimated CRCL calculation 230 ml/min; Estimated Glomerular Filt Rate > 60; Glucose 104 mg/dL (65-110); Potassium 3.9 mmol/L (3.4-5.0); Sodium 138 mmol/L (137-145)
--- OUTSIDE RECORDS SUMMARY | 2025-02-25 02:15 | XMS_ITS | Clinical Summary ---
Author Organization [facility] Address [address] [place] [address] Care Team Providers Care Comb Setter Name Role Phone Unavailable Primary Care Provider Unavailabl e Source Comments [facility],non-owned Affiliates and Associated Physician Practices is amultiple site organization consisting of ambulatory clinics and hospital sitesin [place], [place], [place] and [place]. This disclosure is being madepursuant to the Care Everywhere program and may not contain all information available regarding this patient. Last updated 18.[facility] Allergies No known active allergies Medications Be [...]
--- OUTSIDE RECORDS SUMMARY | 2025-02-25 02:15 | XMS_ITS | CONTINUITY OF CARE DOCUMENT ---
Author Name jah tyson Address Unknown Organization [facility] Address [address] [place] [address] Phone [phone] Care Team Providers Care Olive Packer Name Role Phone Moses RANDLE, Kevan Unavailable DANY JUAREZ MD Unavailable [phone] DANY JUAREZ MD Unavailable PROBLEMS Condition Status Date Provider Notes Chest pain active Kevan Lopes MD Palpitations active Kevan Lopes MD Anxiety disorder active Kevan Lopes MD Bipolar 1 disorder active Kevan Lopes [...] In-person encounter Office Visit Kevan Lopes MD [facility] Cardiology examination - In-person encounter Office Visit Kevan Lopes MD [facility] - In-person encounter Office Visit Kevan Lopes MD [facility] AnxietyDepressionSleep apnea - In-person encounter Office Visit Kevan Lopes MD [facility] - In-person encounter Office Visit Kevan Lopes MD [facility] Chest painPalpitationsAnxiety disorderBipolar 1 disorderHypertensionTobacco abuseSnoring VITAL SIGNS Date Observation Value Provider Body Mass Index (Ratio) 45.19 kg/m2 Viktor Lopes MD blood pressure, diastolic 97 mm[Hg] melissa Lee blood pressure, systolic 148 mm[Hg] Lashae quispe Lee oxygen saturation, oximetry 97 % Marilia Lee pulse rate 115 /[facility] E&M 12 /min [facility] weight E&M 315 [lb_av] [facility] height E&M 70 [in_i] [facility] blood pressure, cuff size regular melissa Lee Body Mass Index (Ratio) 44.76 kg/m2 Viktor Lopes MD blood pressure, cuff size regular sixto Ramirez blood pressure, diastolic 88 mm[Hg] sixto Ramirez [...] ting Prather blood pressure, systolic 128 mm[Hg] [facility] yordy Prather oxygen saturation, oximetry 97 [...] gato Durga oxygen saturation, oximetry 100 % [facility] respiratory rate E&M 14 /min [facility] pulse rate 93 /min Eli Durga weight [...] 1 tablet twice a day 8 Kevan Lopse MD metoprolol tartrate 25 mg tablet completed [...] Single C hildren: 0 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 Kevan Lopes MD [id number],S, Kevan beavers MD [id number],S, Kevan beavers MD [id number],S, Kevan beavers MD [id number],S, Kevan beavers MD [id number],N, Kevan beavers MD [id number],S, Kevan beavers MD [id number],B,Metoprolol wi ll now be prn Kevan Lopes MD [id number],C,Sleep study p ending Kevan Lopes MD [id number],B,Stress and EC HO normal Kevan Lopes MD [id number],S, Kevan beavers MD [id number],B, Kevan beavers MD [id number],W,2 week tele R eugenia Lopes MD [id number],N,Needs sleep s tudy Kevan Lopes MD [id number],N,Start metopro lol Kevan Lopes MD [id number],N,N eeds telesentry N eeds ECHO Kevan Lopes MD [id number],N,Needs stress test. Kevan Lopes MD Cardiology:Needs repeat [facility] Viktor Lopes MD Cardiology:Will check 2 week tel e monitor, ECHO Kevan Lopes MD Cardiology Kevan Lopes MD Cardiology Kevan Lopes MD Cardiology:Still has not picked up CPAP. Kevan Lopes MD Cardiology Kevan Lopes MD Cardiology Kevan Lopes MD Cardiology Kevna Lopes MD Cardiology Kevan Lopes MD Cardiology [...]
[2025-02-25 04:05] VITALS: BP 156/84; PULSE 79; RESP 15; O2SAT 99
== END 2025-02-25 04:06 | disposition home or self-care (01) ==
PROVIDERS: Emergency Provider Student in an Organized Health Care Education/Training Program
DX: R06.00 Dyspnea, unspecified (principal); I11.9 Hypertensive heart disease without heart failure; G47.30 Sleep apnea, unspecified; F41.9 Anxiety disorder, unspecified; F20.9 Schizophrenia, unspecified
CPT/HCPCS: 36415; 71045; 80048; 85025; 93005; 96360; 99283; J7120

== ENCOUNTER 2025-08-25 19:59 | Emergency (ER) | payer OTHER, SELFPAY ==
[2025-08-25 20:09] VITALS: BP 134/81; PULSE 115; RESP 20; TEMP 36.3; O2SAT 97
--- NOTE | 2025-08-25 20:37 | ED.EXTPRO ---
HPI - Extremity Problem General Chief complaint: Extremity Problem,Nontraumatic Stated complaint: leg pain Time Seen by Provider: 08/25/25 20:08 History of Present Illness HPI Narrative: Patient is a 25-year-old male who presents ER with leg pain. He has been having cramping and tingling in his legs over last couple weeks since returning from [place] where he is undergoing mental health treatment. No fevers or chills or sweats. No chest pain or shortness of breath. No to significant edema but he has seen a couple areas of bruising on his legs. He does have some concern for DVT. Patient is anxious currently. Related Data Allergies Allergy/AdvReac Type Severity Reaction Status Date / Time No Known Allergies Allergy Unverified 09/16/11 14:57 Review of Systems Constitutional: Constitutional: Reports no additional constitutional complaints Cardiovascular: Cardiovascular: Reports no additional cardiovascular complaints Respiratory: Respiratory: Reports no additional respiratory complaints Musculoskeletal: Musculoskeletal: Reports no additional musculoskeletal complaints Integumentary/Breasts: Skin/Breast: Reports system reviewed and no additional complaints, except as docu PMFSH Past Medical History Medical History (Updated 08/25/25 @ 21:24 by Jovany Allen MD) Anxiety Exam Narrative: GENERAL: Anxious-appearing, well-nourished, and in no acute distress. HEAD: Normocephalic, atraumatic. ENT: Mucous membranes moist. CHEST: Clear to auscultation. No respiratory distress. HEART: Tachycardic and regular Normal peripheral pulses. EXTREMITIES: Normal range of motion. No edema. negative Arturo sign. SKIN: Warm, dry, no rash. NEURO: Alert and oriented x3. Course Course Emergency Course: D-dimer negative. Nonspecific elevation of white blood cells, no cellulitis on exam. CMP normal. Will arrange outpatient ultrasound in the morning at 7:00 a.m. but no need for blood thinners at this time. Vital Signs Vital signs: Vital Signs Temperature 97.4 F L 08/25/25 20:09 Pulse Rate 115 H 08/25/25 20:09 Respiratory Rate 20 08/25/25 20:09 Blood Pressure 134/81 08/25/25 20:09 Pulse Oximetry 97 08/25/25 20:09 Temperature 97.4 F L 08/25/25 20:09 Pulse Rate 115 H 08/25/25 20:09 Respiratory Rate 20 08/25/25 20:09 Blood Pressure 134/81 08/25/25 20:09 Pulse Oximetry 97 08/25/25 20:09 MDM - Extremity (Nontraumatic) Lab Data 08/25/25 20:58 08/25/25 20:58 Labs: Lab Results 08/25/25 Range/Units 20:58 WBC 13.4 H (4.5-10.0) K/mm3 RBC 5.19 (4.6-6.20) M/mm3 Hgb 15.6 (14.0-18.0) g/dL Hct 45.8 (42.0-52.0) % MCV 88.2 (80-100) fl MCH 30.1 (26-34) pg MCHC 34.1 (32-36) g/dl RDW 12.7 (11.5-14.5) % Plt Count 219 (150-375) k/mm3 MPV 9.9 (7.4-10.4) fl Immature Gran % (Auto) 0.2 (0-0.5) % Neut % (Auto) 75.2 H (45.5-73.1) % Lymph % (Auto) 18.5 (18.3-44.2) % [place] % (Auto) 5.6 (2.6-8.5) % Eos % (Auto) 0.2 (0-4.4) % Baso % (Auto) 0.3 (0.2-1.2) % Lymph # (Auto) 2.48 (0.9-3.2) K/mm3 [place] # (Auto) 0.8 H (0.1-0.6) K/mm3 Eos # (Auto) 0.0 (0-0.3) K/mm3 Baso # (Auto) 0.0 (0.0-0.1) K/mm3 Abs Immat Gran (auto) 0.03 (0.00-0.031) K/mm3 Absolute Neuts (auto) 10.0 H (1.3-6.7) K/mm3 Absolute Nucleated RBC 0.000 (0.0-0.012) K/mm3 Nucleated RBC % 0.0 (0.0-0.2) % PT 13.3 (11.1-14.7) Seconds INR 1.0 APTT 29.3 (22.3-36.8) Seconds D-Dimer < 0.27 (<0.48) ug/mL Sodium 138 (137-145) mmol/L Potassium 4.1 (3.4-5.0) mmol/L Chloride 103 (98-107) mmol/L Carbon Dioxide 23 (22-30) mmol/L Anion Gap 12 (4-12) mmol/L BUN 19 (9-20) mg/dL Creatinine 0.93 (0.7-1.3) mg/dL Estim Creat Clear Calc 148 ml/min Estimated GFR > 60 (59 - ) Glucose 98 (65-110) mg/dL Calcium 9.5 (8.4-10.2) mg/dL Discharge Plan Discharge Clinical Impression: Bilateral leg cramps Patient Disposition: Home Condition: Stable Instructions: Leg Cramps (ED) Additional Instructions: Show up at 7:00 a.m. to have your legs ultrasounded at the [facility] on the backside of the ER but technically the front of the hospital directly off of [address]. Return the ER should you develop chest pain shortness of breath, you lose consciousness, or you have additional concerns. Patient Language: Telugu Other Ambulatory Orders: US venous doppler LE BI (Routine) Timeframe: [id number] Facility: [facility] - Location: [facility] Imaging Ordered By: Jovany Allen Follow-up/Referrals: PHYSICIAN NOT ON STAFF,NONSTAFF [Primary Care Provider] - 1 Week
[2025-08-25 21:04] LABS: Hematocrit 45.8 % (42.0-52.0); Hemoglobin 15.6 g/dL (14.0-18.0); Immature Granulocyte Percent A 0.2 % (0-0.5); Lymphocytes Absolute Auto 2.48 K/mm3 (0.9-3.2); Mean Corpuscular HGB Conc 34.1 g/dl (32-36); Mean Corpuscular Hemoglobin 30.1 pg (26-34); Mean Corpuscular Volume 88.2 fl (80-100); Nucleated Red Blood Cells Absolute Auto 0.000 K/mm3 (0.0-0.012); Nucleated Red Blood Cells Perc 0.0 % (0.0-0.2); Platelet Count Result 219 k/mm3 (150-375); Red Blood Count 5.19 M/mm3 (4.6-6.20); White Blood Count 13.4 K/mm3 (4.5-10.0)
[2025-08-25 21:14] LABS: Anion Gap 12 mmol/L (4-12); Blood Urea Nitrogen 19 mg/dL (9-20); Calcium 9.5 mg/dL (8.4-10.2); Carbon Dioxide 23 mmol/L (22-30); Chloride 103 mmol/L (98-107); Estimated CRCL calculation 148 ml/min; Estimated Glomerular Filt Rate > 60; Glucose 98 mg/dL (65-110); Potassium 4.1 mmol/L (3.4-5.0); Sodium 138 mmol/L (137-145)
[2025-08-25 21:19] LABS: INR 1.0; Prothrombin Time 13.3 Seconds (11.1-14.7)
[2025-08-25 21:20] LABS: Partial Thromboplastin Time 29.3 Seconds (22.3-36.8)
[2025-08-25 21:40] VITALS: BP 137/86; PULSE 112; RESP 18; O2SAT 97
== END 2025-08-25 21:39 | disposition home or self-care (01) ==
PROVIDERS: Emergency Provider Emergency Medicine
DX: R25.2 Cramp and spasm (principal)
CPT/HCPCS: 36415; 80048; 85025; 85380; 85610; 85730; 99283